=== PATIENT | female | born 1940 | race Caucasian/White ===

== ENCOUNTER → 2019-12-30 | Outpatient (CLI) | payer MEDICARE ==
--- NOTE | 2019-12-30 09:28 | Diagnostic Imaging Report ---
INDICATION: Follow-up right wrist fracture. Time of exam: 9:01 AM No prior studies are available for comparison. Wrist is encased in a fiberglass cast. There is a fracture of the distal radius which appears to be healing. There is some sclerosis. Overall bone detail is obscured by cast material. There continues to be some cortical interruption involving the dorsum of the distal radius. Alignment is anatomic. Distal ulna appears intact. Carpus and metacarpals appear intact. IMPRESSION: Distal radius fracture with fracture lines remaining visible. Alignment is anatomic. Dictated by: Dictated on workstation # [id number]
== END ==
LOC: RAD FS 08:54
PROVIDERS: ATTEND Nurse Practitioner
DX: S52.531D Colles' fracture of right radius, subsequent encounter for closed fracture with routine healing (principal); X58.XXXD Exposure to other specified factors, subsequent encounter
CPT/HCPCS: 73100

== ENCOUNTER → 2020-01-17 | Outpatient (CLI) | payer MEDICARE ==
--- NOTE | 2020-01-17 10:15 | Diagnostic Imaging Report ---
INDICATION: Wrist fracture, followup. TIME OF EXAM: 10 00 a.m. Correlation is made with prior radiograph from 12/30/2019. Fiberglas cast obscures bone detail. 2 views of the right wrist again demonstrate a fracture of the distal radius. Overall alignment is anatomic without significant displacement or angulation. Fracture line does remain partially visible. Distal ulna appears intact. Carpus and metacarpals are unremarkable. IMPRESSION: Healing distal radius fracture. Alignment is normal. Fracture line does remain partially visible. Dictated by: Dictated on workstation # [id number]
== END ==
LOC: RAD FS 09:49
PROVIDERS: ATTEND Nurse Practitioner
DX: S52.531D Colles' fracture of right radius, subsequent encounter for closed fracture with routine healing (principal); X58.XXXD Exposure to other specified factors, subsequent encounter
CPT/HCPCS: 73100

== ENCOUNTER → 2020-02-01 | Outpatient (CLI) | payer MEDICARE ==
--- NOTE | 2020-02-01 11:47 | Diagnostic Imaging Report ---
INDICATION: Right wrist fracture, follow-up. TIME OF EXAM: 10:23 AM Correlation is made with prior radiograph from 01/17/2020. FINDINGS: The fiberglass cast has been removed. Impacted fracture distal radius is again noted. There is some sclerosis and callus formation consistent with some healing. Although fracture line does remain partly visible. Alignment is anatomic. Distal ulna is intact. Carpus and metacarpals are intact. IMPRESSION: Healing impacted distal radius fracture. Fracture line does remain partially visible. Dictated by: Dictated on workstation # [id number]
== END ==
LOC: RAD FS 10:17
PROVIDERS: ATTEND Nurse Practitioner
DX: S52.531D Colles' fracture of right radius, subsequent encounter for closed fracture with routine healing (principal)
CPT/HCPCS: 73100

== ENCOUNTER → 2020-02-22 | Outpatient (CLI) | payer MEDICARE ==
--- NOTE | 2020-02-22 11:09 | Diagnostic Imaging Report ---
EXAMINATION: Right wrist at 10:21 AM. INDICATION: Followup fracture. TECHNIQUE: Four views were obtained. FINDINGS: The prior exam of 02/01/2020 noted an impacted healing fracture of the distal radial metaphysis. In the interval since the prior exam, there has been greater callus formation about the fracture site and I suspect that the fracture has nearly completely if not completely healed. No other fracture or acute bony abnormality is identified. The soft tissues are unremarkable. IMPRESSION: 1. The fracture of the distal radial metaphysis has nearly completely if not completely healed. 2. There is no acute bony abnormality appreciated. Dictated by: Dictated on workstation # [id number]
== END ==
LOC: RAD FS 10:00
PROVIDERS: ATTEND Nurse Practitioner
DX: S52.531D Colles' fracture of right radius, subsequent encounter for closed fracture with routine healing (principal)
CPT/HCPCS: 73110

== ENCOUNTER → 2021-06-29 | Outpatient (CLI) | payer MEDICARE | LOC: LAB FS 09:03 | PROVIDERS: ATTEND Surgery | DX: Z01.812 Encounter for preprocedural laboratory examination (principal); C50.911 Malignant neoplasm of unspecified site of right female breast; Z20.822 Contact with and (suspected) exposure to COVID-19 | CPT/HCPCS: 87635 ==

== ENCOUNTER → 2021-08-23 | Outpatient (RCR) | payer MEDICARE | END | disposition home or self-care (01) | LOC: ONC 07-30 10:08 | PROVIDERS: ATTEND Radiology Radiation Oncology | DX: Z51.0 Encounter for antineoplastic radiation therapy (principal); C50.411 Malignant neoplasm of upper-outer quadrant of right female breast; J44.9 Chronic obstructive pulmonary disease, unspecified; E78.00 Pure hypercholesterolemia, unspecified; I10 Essential (primary) hypertension; Z90.11 Acquired absence of right breast and nipple | CPT/HCPCS: 77280; 77290; 77295; 77300; 77307; 77334; 77336; 77417; 99204 ==

== ENCOUNTER 2021-09-06 01:00 | Outpatient (RCR) | payer MEDICARE | END 2021-09-22 | disposition home or self-care (01) | LOC: ONC 01:00 | PROVIDERS: ATTEND Radiology Radiation Oncology | DX: Z51.0 Encounter for antineoplastic radiation therapy (principal); C50.411 Malignant neoplasm of upper-outer quadrant of right female breast; J44.9 Chronic obstructive pulmonary disease, unspecified; E78.00 Pure hypercholesterolemia, unspecified; I10 Essential (primary) hypertension; Z90.11 Acquired absence of right breast and nipple | CPT/HCPCS: 77280; 77336 ==

== ENCOUNTER 2021-10-11 09:11 | Outpatient (RCR) | payer MEDICARE | END 2021-10-23 | disposition home or self-care (01) | LOC: ONC 09:11 | PROVIDERS: ATTEND Radiology Radiation Oncology | DX: C50.411 Malignant neoplasm of upper-outer quadrant of right female breast (principal); J44.9 Chronic obstructive pulmonary disease, unspecified; E78.00 Pure hypercholesterolemia, unspecified; I10 Essential (primary) hypertension; Z90.11 Acquired absence of right breast and nipple | CPT/HCPCS: 99213 ==